=== PATIENT | male | born 1985 | race Caucasian/White ===

== ENCOUNTER 2016-09-02 13:57 | Emergency (ER) | payer SELFPAY ==
[2016-09-02] MEDS ORDERED: OPTIRAY 350 100 ML VIAL HMH IV ONE (13:58)
[2016-09-02] MEDS ORDERED: KETOROLAC 30 MG/ML VIAL ONE (17:02)
== END 2016-09-02 18:23 | disposition home or self-care (01) ==
LOC: ER 13:57
DX: N20.1 Calculus of ureter (principal); R31.9 Hematuria, unspecified; F17.210 Nicotine dependence, cigarettes, uncomplicated
CPT/HCPCS: 36415; 74178; 80053; 81001; 85025; 96374